=== PATIENT | male | born 2000 | race Caucasian/White ===

== ENCOUNTER 2024-09-06 04:16 | Emergency (ER) | payer SELFPAY ==
--- OUTSIDE RECORDS SUMMARY | 2024-09-06 04:18 | XMS_ITS | Continuity of Care Document ---
Author Organization [facility] Address [address] [place] [address] Phone Care Team Providers Care Dress Marker Name Role Phone Brant Hoffman MD Unavailable Unavailable Allergies, Adverse Reactions, Alerts Substance Reaction Status Criticality No Known Allergies Active No Inform ation Medications Medication Instructions Dosage Effective Dates (start - stop) Status Comments Lexapro 10 mg tablet take 1 tablet by oral route every day 10 MG - Active Ritalin 5 mg tablet take 1 tablet by oral route 2 times every day 5 MG - Active buspirone 7.5 mg tablet take 1 tablet by oral route 2 times every day 7.5 MG - Active avoid driving or operate machines Procedures Procedure Date PREV VISIT, NEW, AGE 12-17 OFFICE/OUTPATIENT VISIT, [facility] Advance Directives Directive Yes / No Effective Date File Name No Information Encounters Encounter Description Practice Location Reason(s) For Visit Diagnoses Date Provider Providers Copied on Encounter PREV VISIT, NEW, AGE 12-17 [facility], [address] [place], [place], [id number], tel:[phone] [facility] [email or web address] (chief complaint) Encounter for routine child health exam w abnormal findingsGeneralized anxiety disorderAttention deficitDepression [address], [place], [id number] , [place]. tel:[phone] Family History Family Member Type Diagnosis Age At Onset Mother Problem (finding) anxiety and depression Father Problem (finding) Depression Sister Problem (finding) drug problem Payers Payer name Insurance type Covered constitution party ID Authoriza tion(s) No Information Social History Type Description Quantity Date Captured Comments Alcohol Use Details No Caffeine Use Details Unknown Tobacco Use Status Never smoked tobacco 2014 Smoking Status Never smoker Non-Smoking Tobacco Use Details : No Details Available : No Details Available Sex Male Vital Signs Date / Time: Height Weight BMI Pulse Rate Blood Pressure Temperature Respiratory Rate Body Surface Area Head Circumference BMI percentile Pulse Ox Inhaled Ox 5:23 PM 68.00 in 172.00 lbs 26.1 5 kg/m eter (2) 68 /min 128/78 mm[Hg] 97.8 F 16 /min 89 Chief Complaint And Reason For Visit From encounter dated '06/16/2015 17:18'. phsyical1 (chief complaint). Description: Pt needs annual physical. Pt has long and very complicated psychiatry issue. Pt has history of depression and anxiety and ADD. Pt moved back from [place] to [place] to live with his mother recently. Pt used to live with father in [place] Mom states that he has been doing horriblely in school and he felt overwhelmed and so anxious with anger outburst that he basically stop going to school. Pt missed many classes. Mom wants him to try home bound status for now. Ptdenies any suicidal or homicidal thought. Pt states that he feels very anxious at school and he does not get along with other students. He feels nervous with large crowd. He feels easliy distracted and unable to focus with any of his school work. Plan Of Treatment Date Type Action Status Referral Ordered: Psychiatry (related to Generalized anxiety disorder) ordered Referral Ordered: Referrals: Psychiatry. Evaluate and treat ordered History Of Present Illness Encounter Date Complaint History Of Prese nt Illness [email or web address] Pt needs annual physical. Pt has long and very complicated psychiatry issue. Pt has history of depression and anxiety and ADD. Pt moved back from [place] to [place] to live with his mother recently. Pt used to live with father in [place] Mom states that he has been doing horriblely in school and he felt overwhelmed and so anxious with anger outburst that he basically stop going to school. Pt missed many classes. Mom wants him to try home bound status for now. Pt denies any suicidal or homicidal thought. Pt states that he feels very anxious at school and he does not get along with other students. He feels nervous with large crowd. He feels easliy distracted and unable to focus with any of his school work. Instructions Date Instruction Additional Infor florence No Information Assessments Type Assessment Date assessment Encounter for routine child heal th exam w abnormal findings assessment Generalized anxiety disorder May assessment Attention deficit assessment Depression Mental Status Date Cognitive Assessment Orientation - [place] ed to time, place, person, situation.
--- OUTSIDE RECORDS SUMMARY | 2024-09-06 04:18 | XMS_ITS | Clinical Summary ---
Author Organization [facility] Address [address] [place] [address] Care Team Providers Care Director [employer] Name Role Phone Noe Chavez NP Primary Care Provider Allergies No known active allergies Medications ibuprofen (ADVIL,MOTRIN) 800 mg tablet Take 1 tablet (800 mg total) by mouth 3 (three) times a day 21 tablet 1 Active Additional Information Patient not taking.Reported on 10/04/2021 naproxen (NAPROSYN) 500 mg tablet Take 1 tablet (500 mg total) by mouth 2 (two) times a day with meals 28 tablet 2 Active Additional Information Patient not taking.Reported on 10/04/2021 ALPRAZolam (XANAX) 0.5 mg tablet Take by mouth 3 (three) times a day as needed 2 Active cyclobenzaprine (FLEXERIL) 10 mg tabletIndicatio ns:Muscle Spasm Take 1 tablet (10 mg total) by mouth 3 (three) times a day as needed for muscle spasms 30 tablet 2 Active HYDROcodone-keke taminophen (NORCO) 5-325 mg per tabletIndicatio ns:Pain Take one tablet every 12 hours as needed for pain 14 tablet 2 Active Active Problems Problem Noted Date Diagnosed Date Recurrent shoulder dislocation, left 10/04/2021 Closed nondisplaced fracture of middle third of navicular bone of right wrist 09/02/2021 Wrist sprain, right, initial encounter 2 Sprain of scapholunate ligament 08/16/2021 Pilonidal cyst with abscess 11/28/2020 Closed nondisplaced fracture of head of radius with routine healing 10/29/2020 Gastroesophageal reflux disease 05/21/2018 Other chest pain 05/21/2018 Palpitations 05/21/2018 Chronic right-sided headache 10/16/2009 Skull fracture (CMS/HCC) 10/16/2009 Surgical History Surgery Date Site/Laterality Comments SKIN LESION EXCISION Excision Of Lesion Face - Keratineous cyst / Left face Dr. Beto Black (Added by TW Conv) NC TONSILLECTOMY & ADENOIDEC RICARDO <AGE 12 Tonsillectomy With Adenoidectomy - (Added by TW Conv) Family History Medical History Relation Name Comments Hypertension Father Hypertension Mother Relation Name Status Comments Father Mother Social History Tobacco Use Types Packs/Day Years Used Date Smoking Tobacco: Every Day Cigarettes Smokeless Tobacco: Never Alcohol Use Standard Drinks/Week Comments Yes 0 (1 standard drink = 0.6 oz pur e alcohol) socially Sex and Gender Information Value Date Recorded Sex Assigned at Not on file Legal Sex Male 8:47 PM TANK ASSEMBLER Gender Identity Male 08/18/2021 1:42 PM TANK ASSEMBLER Sexual Orientation Not on file Obstetrics History Last Filed Vital Signs Vital Sign Reading Time Taken Comments Blood Pressure 135/82 09/02/2021 8:28 AM TANK ASSEMBLER Pulse 80 09/02/2021 8:28 AM TANK ASSEMBLER Temperature 36.7 C (98.1 F) 08/14/2021 2:15 PM TANK ASSEMBLER Respiratory Rate 18 08/14/2021 5:30 PM TANK ASSEMBLER Oxygen Saturation 99% 08/14/2021 5:30 PM TANK ASSEMBLER Inhaled Oxygen Concentration - - Weight 109.8 kg (242 lb) 11/09/2021 2:41 PM CDT Height 170.2 cm (5' 7 ) 12/16/2021 12:06 PM CDT Body Mass Index 36.8 11/09/2021 2:41 PM CDT Plan of Treatment Health Maintenance Due Date Last Done Comments Depression Screening 1998 Hepatitis C Screening 1998 Pneumococcal vaccine <65 (1 of 2 - PCV) 02/15/2004 Varicella Vaccines (1 of 2 - 13+ 2-dose series) 2010 HPV Vaccines (1 - Male 3-dose series) 2013 Hepatitis B Screening 02/15/2016 Regular Well Visit/Exam 18-64 02/15/2016 Influenza Vaccine (#1) 2024 02/22/2017 DTaP/Tdap/Td Vaccine (2 - Td or Tdap) 01/25/203211/2021 Insurance Care Teams Director [employer] Relationship Specialty [place] [id number] [address] [facility] [address] [address] PCP - General Family Medicine 02/06/22
--- OUTSIDE RECORDS SUMMARY | 2024-09-06 04:18 | XMS_ITS | Referral Summary ---
Author Organization [facility] Address [address] [place] [id number] Care Team Providers Care Special Events Fundraiser Name Role Phone Noe Chavez NP Primary Care Provider [phone] Allergies No known active allergies Medications ibuprofen [...] right-sided headache 10/16/2009 Skull fracture (CMS/HCC) 10/16/2009 Social History Tobacco Use Types Packs/Day Years Used Date Smoking Tobacco: Every Day Cigarettes Smokeless Tobacco: Never Alcohol Use Standard Drinks/Week Comments Yes 0 (1 standard drink = 0.6 oz pur e alcohol) socially Sex and Gender Information Value Date Recorded Sex Assigned at Not on file Legal Sex Male 8:47 PM ICEBOX MAN Gender Identity Male 08/18/2021 1:42 PM ICEBOX MAN Sexual Orientation Not on file Last Filed Vital Signs Vital Sign Reading Time Taken Comments Blood Pressure 135/82 09/02/2021 8:28 AM ICEBOX MAN Pulse 80 09/02/2021 8:28 AM ICEBOX MAN Temperature 36.7 C (98.1 F) 08/14/2021 2:15 PM ICEBOX MAN Respiratory Rate 18 08/14/2021 5:30 PM ICEBOX MAN Oxygen Saturation 99% 08/14/2021 5:30 PM ICEBOX MAN Inhaled Oxygen Concentration - - Weight 109.8 kg (242 lb) 11/09/2021 2:41 PM CDT Height 170.2 cm (5' 7 ) 12/16/2021 12:06 PM CDT Body Mass Index 36.8 11/09/2021 2:41 PM CDT Plan of Treatment Not on file [place] [address] [place] [address] [employer] Care Teams Special Events Fundraiser Relationship Specialty [place] [id number] [address] [place], [place] [phone] PCP - General Family Medicine 02/06/22
[2024-09-06 04:20] VITALS: BP 139/100; PULSE 88; RESP 20; TEMP 36.3; O2SAT 100
--- OUTSIDE RECORDS SUMMARY | 2024-09-06 04:35 | XMS_ITS | Continuity of Care Document ---
Author Organization [facility] Address [address] [place] [address] Phone Care Team Providers Care Pcat Instructor Name Role Phone Brant Hoffman MD Unavailable [...] PREV VISIT, NEW, AGE 12-17 OFFICE/OUTPATIENT VISIT, [facility] Advance Directives Directive Yes / No Effective Date File Name No Information Encounters Encounter Description Practice Location Reason(s) For Visit Diagnoses Date Provider Providers Copied on Encounter PREV VISIT, NEW, AGE 12-17 [facility], [address] [place], [place], [id number], tel:[phone] [facility] [email or web address] (chief complaint) Encounter for routine child health exam w abnormal findingsGeneralized anxiety disorderAttention deficitDepression [address] [place], [place], [id number] , [place]. tel:[phone] Family History Family Member Type Diagnosis Age At Onset Mother Problem (finding) anxiety and depression Father Problem (finding) Depression Sister Problem (finding) drug problem Payers Payer name Insurance type Covered green party ID Authoriza tion(s) No Information Social [...] anxiety and ADD. Pt moved back from [place] to [place] to live with his mother recently. Pt used to live with father in [place] Mom states that he has been doing [...] anxiety and ADD. Pt moved back from [place] to [place] to live with his mother recently. Pt used to live with father in [place] Mom states that he has been doing [...] Mental Status Date Cognitive Assessment Orientation - [place] ed to time, place, person, situation.
[2024-09-06] MEDS: AMOXICILLIN 500 MG CAPSULE PO (04:46)
[2024-09-06] MEDS: oxyCODONE/ACETAMINOPHEN (*CRX) 5-325 MG TABLET 1 TABLET PO (04:46)
--- NOTE | 2024-09-06 04:48 | ED_ITS ---
HPI - Dental/Oral General Chief complaint: Dental/Oral Stated complaint: upper right dental pain Time Seen by Provider: 09/06/24 04:19 History of Present Illness HPI Narrative: Patient presents with right upper molar dental pain that has been very severe over last few days, to the point where he has to hold water in his mouth at all times to help keep the pain at bay. He has already tried Tylenol 3, ibuprofen, oragel, nothing helps. Related Data Allergies Allergy/AdvReac Type Severity Reaction Status Date / Time No Known Allergies Allergy Mild Verified 09/06/24 04:23 Review of Systems Review of Systems: All systems reviewed & are unremarkable except as noted in HPI and below Exam Narrative: EXAMINATION OF ORGAN SYSTEMS/BODY AREAS: Constitutional: Vital signs per nursing GENERAL: Patient appears extremely uncomfortable, holding his jaw HEAD: Normal with no signs of head trauma. EYES: EOMI, conjunctiva normal ENT: Dental hemanth right upper molar LUNGS: Nonlabored breathing. HEART: [Regular rate and rhythm] ABD: [Soft], [nontender to palpation] EXT: Normal range of motion SKIN: [No rashes or lesions.] NEURO: [Alert and oriented x 3. No gross focal sensory or strength deficits.] PSYCH: Normal affect Course Vital Signs Vital signs: Vital Signs Temperature 97.4 F L 09/06/24 04:20 Pulse Rate 88 09/06/24 04:20 Respiratory Rate 20 09/06/24 04:20 Blood Pressure 139/100 H 09/06/24 04:20 Pulse Oximetry 100 09/06/24 04:20 Oxygen Delivery Room Air 09/06/24 04:20 Temperature 97.4 F L 09/06/24 04:20 Pulse Rate 88 09/06/24 04:20 Respiratory Rate 20 09/06/24 04:20 Blood Pressure 139/100 H 09/06/24 04:20 Pulse Oximetry 100 09/06/24 04:20 Oxygen Delivery Room Air 09/06/24 04:20 MDM - Dental/Oral MDM Narrative Medical decision making narrative: ED COURSE AND MEDICAL DECISION MAKING: Patient with worsening dental pain and dental decay. No palpable abscess, no trismus. No systemic signs or symptoms. Analgesics and antibiotics are admi nistered. Offered dental block which patient declined. Follow-up instructions given for dental/oral surgery clinics. Patient was given return precautions and discharged home in stable condition. Discharge Plan Discharge Clinical Impression: Dental caries Patient Disposition: Home, Self-Care Condition: Stable Instructions: Antibiotic Form, Toothache (ED) Additional Instructions: Please follow-up with your dentist as soon as you can. Take the antibiotics as prescribed. You can always return to the emergency room for any further issues. Patient Language: Cook Islander Prescriptions: New amoxicillin 500 mg capsule 500 mg PO Q8H 7 Days Qty: 21 0RF oxycodone 5 mg capsule 5 mg PO Q8H PRN (Reason: pain) Qty: 7 0RF Follow-up/Referrals: UNKNOWN,DOCTOR [Primary Care Provider] -
== END 2024-09-06 04:53 | disposition home or self-care (01) ==
PROVIDERS: Emergency Provider Emergency Medicine
DX: K02.9 Dental caries, unspecified (principal)
CPT/HCPCS: 99283; A9270